=== PATIENT | male | born 1945 | race Caucasian/White ===

== ENCOUNTER 2017-05-23 19:30 | Emergency (ER) | payer MEDICARE ==
[~2017-05-23] VITALS: Ht 182.9 cm; Wt 97.5 kg
--- NOTE | ~2017-05-23 | CR184 ---
[facility] A Service of [facility] RADIOLOGY TEXT RESULTS PATIENT: TATY PRICE JR LOCATION: [facility] : 49 UNIT #: [id number] AGE: [address]: Abhijit Thomas SEX: M ORDER DR: [id number] [facility] [address] [facility] [place], [place] [address] [id number] MR#: [id number] Acc #: [id number] NAME: TATY PRICE JR : 1945 SEX: M STUDY DATE/TIME: 05/23/2017 21:16 UNIT: TX ROOM: STUDY DESCRIPTION: CR Lumbar Spine Min 4 Views Attending Physician: Abhijit Thomas P.A.-C. Ordering Physician: Abhijit Thomas P.A.-C. Primary Care Physician: Primary Care Physician No MEDICAL IMAGING REPORT This report is preliminary unless electronic signature is present EXAM Lumbar spine 05/23/2017 HISTORY 71-year-old male with low back pain for 3 months. No specific injury. COMPARISON None. FINDINGS Five views of the lumbar spine demonstrate no acute fracture or subluxation. Vertebral body heights and alignment are normally maintained. No evidence of spondylolysis. Mild multilevel degenerative disc changes. Moderate multilevel facet degeneration. Sacrum and SI joints are intact. Suspected postoperative changes from bone graft harvest in the left ilium. Atherosclerotic calcification of the abdominal aorta. IMPRESSION No acute lumbar spine injury. Multilevel degenerative changes, detailed above. Dictated by... Stewart Edmond M.D. THIS IS AN ELECTRONICALLY VERIFIED REPORT Stewart Edmond M.D. at 05/24/2017 2:43 PM PJ/reji TD: 05/24/2017 08:30 JOB #: [id number] [facility] A Service [facility] RADIOLOGY TEXT RESULTS PATIENT: TATY PRICE JR LOCATION: [facility] : 49 UNIT #: [id number] AGE: [address]: Abhijit Thomas PAC SEX: M ORDER DR: MEDICAL IMAGING REPORT Page 1 of 1 COPY
== END 2017-05-23 22:35 | disposition home or self-care (01) ==
LOC: CFTX 19:30 → CED 19:30 → CFTX 21:56
DX: M54.16 Radiculopathy, lumbar region (principal); I10 Essential (primary) hypertension
CPT/HCPCS: 72110; 99283